=== PATIENT | male | born 1940 | race Caucasian/White ===

== ENCOUNTER 2017-09-06 19:19 | Emergency (ER) | payer OTHER ==
[~2017-09-06] VITALS: Ht 165.1 cm; Wt 80.7 kg
[2017-09-06 20:08] LABS: Basophils # (auto) 0 uL; Basophils % (auto) 0.9 % (0.0-2.0); Eosinophils # (auto) 0.1 uL; Eosinophils % (auto) 1.4 % (0.0-7.0); Hematocrit 30.1 % (41.0-53.0); Hemoglobin 9.5 g/dL (13.5-17.5); Lymphocytes # (auto) 0.9 uL; Lymphocytes % (auto) 18.7 % (10.0-50.0); Mean Corpuscular Hemoglobin 29.5 pg (28.0-32.0); Mean Corpuscular Hgb Conc. 31.7 g/dL (32.0-36.0); Monocytes # (auto) 0.4 uL; Monocytes % (auto) 8.6 % (0.0-12.0); Neutrophils # (auto) 3.4 uL; Neutrophils % (auto) 70.4 % (37.0-80.0); Nucleated Red Blood Cells % 0.2 %; Platelet Count (auto) 160 10^3/uL (140-450); Red Blood Cells 3.23 10^6/uL (4.5-5.90); White Blood Cell 4.8 10^3/uL (4.4-10.8)
[2017-09-06 20:14] LABS: Red Cell Distribution Width 21.8 % (11.8-14.3)
[2017-09-06 20:16] LABS: INR 1.1 (0.9-1.15)
[2017-09-06 20:31] LABS: Urine Bacteria NONE SEEN /hpf (None Seen); Urine Blood Negative /uL (Negative); Urine Specific Gravity 1.009 (1.001-1.035); Urine WBC 1 /hpf (0 - 3)
[2017-09-06 20:33] LABS: BUN/Creatinine Ratio 6.2; Calcium 7.7 mg/dL (8.5-10.1); Potassium 3.3 mmol/L (3.5-5.1)
[2017-09-06 20:35] LABS: Bilirubin, Total 0.6 mg/dL (0.2-1.0)
[2017-09-06 22:00] VITALS: BP 174/82
== END 2017-09-06 22:45 | disposition home or self-care (01) ==
LOC: EDBD 19:19 → ER 19:19
DX: M79.89 Other specified soft tissue disorders (principal); E83.51 Hypocalcemia; E87.6 Hypokalemia; I13.0 Hypertensive heart and chronic kidney disease with heart failure and stage 1 through stage 4 chronic kidney disease, or unspecified chronic kidney disease; E11.22 Type 2 diabetes mellitus with diabetic chronic kidney disease; N18.9 Chronic kidney disease, unspecified; I50.9 Heart failure, unspecified; J44.9 Chronic obstructive pulmonary disease, unspecified; K21.9 Gastro-esophageal reflux disease without esophagitis; E78.00 Pure hypercholesterolemia, unspecified; I25.2 Old myocardial infarction; Z87.891 Personal history of nicotine dependence; Z95.1 Presence of aortocoronary bypass graft
CPT/HCPCS: 36415; 71045; 80053; 81001; 85025; 85379; 85610; 93971